=== PATIENT | male | born 1945 | race Caucasian/White ===

== ENCOUNTER 2021-10-04 15:26 | Emergency (ER) | payer MEDICARE, BC ==
[2021-10-04 15:45] VITALS: BP 102/62; PULSE 70
[2021-10-04 17:10] LABS: ANION GAP 14.6 mEq/L (7-13); CHLORIDE,CL 104 mmol/L (98-107); SODIUM,NA 140 mmol/L (136-145)
[2021-10-04 17:27] LABS: ESTIMATED GFR 47 mL/min (>=60)
== END 2021-10-04 18:20 | disposition home or self-care (01) ==
LOC: DL.ED 15:26
DX: U07.1 COVID-19 (principal); E78.00 Pure hypercholesterolemia, unspecified; Z79.899 Other long term (current) drug therapy
CPT/HCPCS: 36415; 80053; 83605; 85025; 85379; 87040; 99284